=== PATIENT | male | born 1980 | race Caucasian/White ===

== ENCOUNTER → 2016-11-20 | Outpatient (CLI) | payer BC | LOC: RAD 08:47 | DX: M25.561 Pain in right knee (principal); M25.461 Effusion, right knee; M25.661 Stiffness of right knee, not elsewhere classified; M17.11 Unilateral primary osteoarthritis, right knee ==

== ENCOUNTER → 2017-08-06 | Outpatient (CLI) | payer BC | LOC: RAD 08:48 | DX: M25.561 Pain in right knee (principal) ==

== ENCOUNTER → 2017-08-18 | Outpatient (CLI) | payer BC | LOC: PT 13:52 | DX: Z01.818 Encounter for other preprocedural examination (principal) ==

== ENCOUNTER 2017-11-04 11:30 | Outpatient (RCR) | payer BC | END 2017-11-24 | disposition home or self-care (01) | LOC: PT | DX: Z47.89 Encounter for other orthopedic aftercare (principal) ==

== ENCOUNTER → 2017-12-24 | Outpatient (CLI) | payer BC | LOC: RAD 10:20 | DX: Z98.890 Other specified postprocedural states (principal) ==

== ENCOUNTER 2020-07-20 15:30 | Outpatient (RCR) | payer BC | END 2020-07-24 | disposition home or self-care (01) | LOC: PT | DX: Z98.890 Other specified postprocedural states (principal) ==